=== PATIENT | female | born 1990 | race Two or more races ===

== ENCOUNTER 2018-02-16 18:58 | Emergency (ER) | payer SELFPAY ==
[2018-02-16 19:26] VITALS: BP 115/76; PULSE 88; RESP 16; TEMP 98; O2SAT 100
[2018-02-16] MEDS ORDERED: Oxycodone/Acetaminophen 5/325 mg Tab PO ONE (20:35)
[2018-02-16] MEDS ORDERED: Oxycodone/Acetaminophen 5/325 mg Tab ONE (20:39)
--- NOTE | 2018-02-16 20:54 | ED PDOC ---
HPI: General Adult Time Seen by Provider: 02/16/18 19:00 Chief Complaint (Nursing): Abnormal Skin Integrity Chief Complaint (Provider): Abnormal Skin Integrity History Per: Patient History/Exam Limitations: no limitations Onset/Duration Of Symptoms: Days (x 4) Current Symptoms Are (Timing): Still Present Additional Complaint(s): 27 year old female presents to the ED with a bumps on her buttocks for the last 4 days. Patient reports having similar symptoms 2 years ago and them resolving without intervention. She admits to having normal bowel movements and mild nausea. She denies vomiting, fever and discharge from wound. PMD: none provided Past Medical History Reviewed: Historical Data, Nursing Documentation, Vital Signs Vital Signs: Last Vital Signs Temp 98.0 F 02/16/18 19:24 Pulse 88 02/16/18 19:24 Resp 16 02/16/18 19:24 BP 115/76 02/16/18 19:24 Pulse Ox 100 02/16/18 21:06 - Medical History PMH: No Chronic Diseases - Surgical History Surgical History: No Surg Hx - Family History Family History: States: Unknown Family Hx - Home Medications Home Medications: Ambulatory Orders Medication Instructions Recorded Cephalexin [cephalexin] 500 mg PO QID #28 cap 02/16/18 Ibuprofen [Motrin] 600 mg PO Q6H PRN #20 tab 02/16/18 Sulfamethoxazole/Trimethoprim 1 tab PO BID #14 tab 02/16/18 [Bactrim DS 800 mg-160 mg] - Allergies Allergies/Adverse Reactions: Allergies Allergy/AdvReac Type Severity Reaction Status Date / Time No Known Allergies Allergy Verified 02/16/18 19:24 Review of Systems ROS Statement: Except As Marked, All Systems Reviewed And Found Negative Constitutional: Negative for: Fever Gastrointestinal: Negative for: Vomiting Skin: Positive for: Other (bumps on buttocks) Physical Exam - Reviewed Nursing Documentation Reviewed: Yes Vital Signs Reviewed: Yes - Physical Exam Appears: Positive for: Non-toxic, No Acute Distress Head Exam: Positive for: ATRAUMATIC, NORMAL INSPECTION, NORMOCEPHALIC Skin: Positive for: Normal Color, Warm, Dry Eye Exam: Positive for: EOMI, Normal appearance, PERRL Gastrointestinal/Abdominal: Positive for: Soft Extremity: Positive for: Other (very indurated pilonidal cyst on buttocks without fluctuance and surrounding cellulitis; not ready for I&D) Neurologic/Psych: Positive for: Alert, Oriented. Negative for: Motor/Sensory Deficits - ECG O2 Sat by Pulse Oximetry: 100 (RA) Pulse Ox Interpretation: Normal Medical Decision Making Medical Decision Makin:35 Initial Plan: --Oxycodone 1 tab PO Patient is advised to follow up within 2 days at [facility] (where she follows) or this ED. She was given prescriptions for Cephalexin, Motrin and Trimethoprim. Take as directed. Diagnosis is Polindal cyst. Return to the ED if symptoms persist or worsen. black jack dealer in demand Moxie Jeansia Trejo #[id number] was used. ---- Scribe Attestation: Documented by Brittney Francis, acting as a scribe for Jaime Rogers MD Provider Scribe Attestation: All medical record entries made by the Scribe were at my direction and personally dictated by me. I have reviewed the chart and agree that the record accurately reflects my personal performance of the history, physical exam, medical decision making, and the department course for this patient. I have also personally directed, reviewed, and agree with the discharge instructions and disposition. Disposition - Clinical Impression Clinical Impression: Pilonidal cyst - Patient ED Disposition Is Patient to be Admitted: No Counseled Patient/Family Regarding: Studies Performed, Diagnosis, Need For Followup - Disposition Disposition: Routine/Home Disposition Time: 20:00 Condition: IMPROVED Additional Instructions: follow up with your primary doctor or if unable to see your doctor in the ER in 2 days for reevaluation to see if abscess ready to be drained return to the ED with any worsening or concerning symptoms RONY SHANKS, thank you for letting us take care of you today. Your provider was Jaime Rogers MD and you were treated for POSS BUMP ON BUTTOCK. The emergency medical care you received today was directed at your acute symptoms. If you were prescribed any medication, please fill it and take as directed. It may take several days for your symptoms to resolve. Return to the Emergency Department if your symptoms worsen, do not improve, or if you have any other problems. Please contact your doctor or call one of the physicians/clinics you have been referred to that are listed on the Patient Visit Information form that is included in your discharge packet. Bring any paperwork you were given at discharge with you along with any medications you are taking to your follow up visit. Our treatment cannot replace ongoing medical care by a primary care provider outside of the emergency department. Thank you for allowing the [facility] team to be part of your care today. If you had an X-Ray or CT scan: A Radiologist will review the ED reading if any change in treatment is needed we will contact you. If you had a blood, urine, or wound culture: It will take several days for the results, if any change in treatment is needed we will contact you. If you had an STI test: It will take 48 hours for the results. Please call after 1 week if you have not heard back. Prescriptions: Cephalexin [cephalexin] 500 mg PO QID #28 cap Ibuprofen [Motrin] 600 mg PO Q6H PRN #20 tab PRN Reason: Pain, Moderate (4-7) Sulfamethoxazole/Trimethoprim [Bactrim DS 800 mg-160 mg] 1 tab PO BID #14 tab Instructions: Pilonidal Cyst (DC) Forms: [employer] ([employer])
== END 2018-02-16 20:53 | disposition home or self-care (01) ==
LOC: H.ER 18:58
DX: L05.91 Pilonidal cyst without abscess (principal)

== ENCOUNTER 2018-08-15 21:06 | Emergency (ER) | payer OTHER ==
[2018-08-15 21:14] VITALS: BP 112/74; PULSE 84; RESP 16; TEMP 98.5; O2SAT 99
[2018-08-15] MEDS ORDERED: Lidocaine 1% Inj (20ml) ONE (21:36)
--- NOTE | 2018-08-15 21:55 | ED PDOC ---
HPI: Back Time Seen by Provider: 08/15/18 21:24 Chief Complaint (Nursing): Abnormal Skin Integrity Chief Complaint (Provider): Abnormal Skin Integrity History Per: Patient History/Exam Limitations: no limitations Onset/Duration Of Symptoms: Other (x2 weeks) Current Symptoms Are (Timing): Still Present Additional Complaint(s): 27 year old female presents to the ED complaining of painful swelling to the upper buttock for 2 weeks. Denies fever and chills. Patient reports similar swelling a couple of months ago but it resolved on its own. PMD: none Past Medical History Reviewed: Historical Data, Nursing Documentation, Vital Signs Vital Signs: Last Vital Signs Temp 98.5 F 08/15/18 21:09 Pulse 84 08/15/18 21:09 Resp 16 08/15/18 21:09 BP 112/74 08/15/18 21:09 Pulse Ox 99 08/15/18 21:09 - Medical History PMH: No Chronic Diseases - Surgical History Surgical History: No Surg Hx - Family History Family History: States: Unknown Family Hx - Home Medications Home Medications: Ambulatory Orders Medication Instructions Recorded Cephalexin [cephalexin] 500 mg PO QID #28 cap 02/16/18 Ibuprofen [Motrin] 600 mg PO Q6H PRN #20 tab 02/16/18 Sulfamethoxazole/Trimethoprim 1 tab PO BID #14 tab 02/16/18 [Bactrim DS 800 mg-160 mg] Doxycycline Hyclate 100 mg PO BID #14 capsule 08/15/18 Ibuprofen [Motrin Tab] 600 mg PO TID 5 Days #15 tab 08/15/18 - Allergies Allergies/Adverse Reactions: Allergies Allergy/AdvReac Type Severity Reaction Status Date / Time No Known Allergies Allergy Unverified 08/15/18 21:09 Review of Systems ROS Statement: Except As Marked, All Systems Reviewed And Found Negative Skin: Positive for: Other (swelling to the lower back) Physical Exam - Reviewed Nursing Documentation Reviewed: Yes Vital Signs Reviewed: Yes - Physical Exam Appears: Positive for: Non-toxic, No Acute Distress Head Exam: Positive for: ATRAUMATIC, NORMOCEPHALIC Skin: Positive for: Normal Color, Warm, Dry Eye Exam: Positive for: Normal appearance Neck: Positive for: Normal, Painless ROM Cardiovascular/Chest: Positive for: Regular Rate, Rhythm Respiratory: Positive for: Normal Breath Sounds. Negative for: Wheezing, Respiratory Distress Back: Positive for: Other ((+) 3 cm area of swelling, tenderness, and fluctuance to the right of the gluteal cleft. ) Extremity: Positive for: Normal ROM Neurologic/Psych: Positive for: Alert, Oriented - ECG O2 Sat by Pulse Oximetry: 99 (RA) Pulse Ox Interpretation: Normal Medical Decision Making Medical Decision Making: Initial Plan: --1% Lidocaine --Doxycycline --Motrin po Will perform I&D. Pt. tolerated well. Instructions given in persian, warm compresses, return in 2d. for packing removal. Scribe Attestation: Documented by Salomon Eagle acting as a scribe for Vashti SALTER. Provider Scribe Attestation: All medical record entries made by the Scribe were at my direction and personally dictated by me. I have reviewed the chart and agree that the record accurately reflects my personal performance of the history, physical exam, medical decision making, and the department course for this patient. I have also personally directed, reviewed, and agree with the discharge instructions and disposition. Procedures - Incision and Drainage Site: right gluteal cleft Blade Size: 11 I & D Procedure: betadine prep, gauze wick placed Progress: large amount of purulence, packing inserted, bulky d/s/d applied. pt tolerated well. Disposition - Clinical Impression Clinical Impression: Pilonidal cyst - Patient ED Disposition Is Patient to be Admitted: No Counseled Patient/Family Regarding: Diagnosis, Need For Followup, Rx Given - Disposition Disposition: Routine/Home Disposition Time: 22:15 Condition: STABLE Prescriptions: Doxycycline Hyclate 100 mg PO BID #14 capsule Ibuprofen [Motrin Tab] 600 mg PO TID 5 Days #15 tab Instructions: Pilonidal Cyst (DC) Forms: [employer] (Indonesian) Print Language: SERBIAN
== END 2018-08-15 22:21 | disposition home or self-care (01) ==
LOC: H.ER 21:06
DX: L05.91 Pilonidal cyst without abscess (principal)

== ENCOUNTER 2018-08-17 09:51 | Emergency (ER) | payer OTHER ==
--- NOTE | 2018-08-17 10:12 | ED PDOC ---
HPI: General Adult Time Seen by Provider: 08/17/18 10:04 History Per: Patient Onset/Duration Of Symptoms: Days (2) Severity: Mild Additional Complaint(s): S/p I&D pilonidal abscess 2 days ago. Wick placed and pt on antibiotics. Denies fever. Pain improved. Here for wound check and packing removal. Past Medical History Vital Signs: Last Vital Signs Temp 98.6 F 08/17/18 09:57 Pulse 79 08/17/18 09:57 Resp 15 08/17/18 09:57 BP 114/74 08/17/18 09:57 Pulse Ox 99 08/17/18 09:57 - Medical History PMH: No Chronic Diseases - Family History Family History: States: Unknown Family Hx - Home Medications Home Medications: Ambulatory Orders Medication Instructions Recorded Cephalexin [cephalexin] 500 mg PO QID #28 cap 02/16/18 Ibuprofen [Motrin] 600 mg PO Q6H PRN #20 tab 02/16/18 Sulfamethoxazole/Trimethoprim 1 tab PO BID #14 tab 02/16/18 [Bactrim DS 800 mg-160 mg] Doxycycline Hyclate 100 mg PO BID #14 capsule 08/15/18 Ibuprofen [Motrin Tab] 600 mg PO TID 5 Days #15 tab 08/15/18 - Allergies Allergies/Adverse Reactions: Allergies Allergy/AdvReac Type Severity Reaction Status Date / Time No Known Allergies Allergy Unverified 08/15/18 21:09 Review of Systems Constitutional: Negative for: Fever Musculoskeletal: Negative for: Back Pain Physical Exam - Physical Exam Appears: Positive for: Non-toxic, No Acute Distress Back: Positive for: Other (Packing removed. No drainage. No erythema) - ECG O2 Sat by Pulse Oximetry: 99 Disposition - Clinical Impression Clinical Impression: Pilonidal cyst, Encounter for wound re-check - Patient ED Disposition Is Patient to be Admitted: No - Disposition Disposition: Routine/Home Disposition Time: 10:11 Condition: FAIR Instructions: Pilonidal Cyst Print Language: SALVADOREAN
[2018-08-17 10:55] VITALS: BP 116/72; PULSE 80; RESP 16; TEMP 98.2; O2SAT 100
== END 2018-08-17 10:55 | disposition home or self-care (01) ==
LOC: H.ER 09:51
DX: Z48.00 Encounter for change or removal of nonsurgical wound dressing (principal)